=== PATIENT | female | born 1980 | race Caucasian/White ===

== ENCOUNTER → 2016-11-29 | Outpatient (CLI) | payer BC ==
[~2016-11-29] MED LIST: FLNCV PO; LEVO75TA5 PO
[2016-11-29 12:23] LABS: THYROID STIMULATING HORMONE 0.469 uIu/ml (0.300-4.500)
== END | disposition home or self-care (01) ==
LOC: C.LAB 10:49
PROVIDERS: ATTEND Internal Medicine Pulmonary Disease
DX: E03.9 Hypothyroidism, unspecified (principal)

== ENCOUNTER 2017-11-29 19:29 | Emergency (ER) | payer BC ==
[~2017-11-29] VITALS: Ht 152.4 cm; Wt 71.9 kg
[2017-11-29 19:31] VITALS: TEMP 36.8; Ht 152.4 cm; Wt 71.9 kg
[2017-11-29] MEDS ORDERED: SEPTRA DS HOME PACK 1 EA VIAL PO ONE (20:15)
[2017-11-29] MEDS ORDERED: CEPHALEXIN 500MG HOME PACK 1 EA BTL PO ONE (20:15)
[2017-11-29] MEDS ORDERED: SULFAMETHOXAZOLE/TRIMETHOPRIM DS 800/160MG TAB PO ONE (20:15)
[2017-11-29] MEDS ORDERED: CEPHALEXIN MONOHYDRATE 250 MG CAP PO ONE (20:15)
[2017-11-29] MEDS ORDERED: SULF800T23 PO (20:17)
[2017-11-29] MEDS ORDERED: CEPH500C PO (20:17)
--- NOTE | 2017-11-29 20:18 | EMERGENCY ROOM VISIT NOTE ---
History Report prepared by Keely: Cheryl Kumar Under the Supervision of: Dr. Pineda Kerr D.O. First contact with patient: 19:42 Chief Complaint: WOUND INFECTION Stated Complaint: CYST ON BACK, MAY BE INFECTED History of Present Illness The patient is a 37 year old female who presents to the Emergency Room with complaints of a worsening cyst on the right side of her back that started 4 days ago. The patient states that the cyst seems to have gotten bigger over the past few days and her family member notes that the cyst has expanded more toward the patient's left side. The patient notes that pus consistently comes back after she drains the cyst, and she complains of soreness in the cyst area. The patient reports that a nurse from her insurance company instructed the patient to come to the ED. She currently rates her pain a 4/10. The patient also reports a history of cysts and she notes that she had another cyst removed in the past. Source of History: patient Onset: 4 days ago Position: back (right) Symptom Intensity: 4/10 Quality: other (cyst) Timing: worsening Associated Symptoms: No fevers Review of Systems See HPI for pertinent positives & negatives. A total of 10 systems reviewed and were otherwise negative. Social History Smoking Status: Never Smoker Alcohol Use: none Marital Status: Occupation Status: employed Current/Historical Medications Scheduled Levothyroxine Sodium (Levothyroxine Sodium), 75 MCG PO DAILY Multivitamins (Flintstones Chewable *), 1 TAB PO QAM Allergies Uncoded Allergies: CAT SCAN DYE (Allergy, Severe, SOB/FACE & THROAT SWELLED, 04/16/14) Physical Exam Vital Signs Date Time Temp Pulse Resp B/P (MAP) Pulse Ox O2 Delivery O2 Flow Rate FiO2 18 19:31 36.8 84 18 146/90 98 Room Air Physical Exam CONSTITUTIONAL/VITAL SIGNS: Reviewed / noted above. GENERAL: Non-toxic in appearance. INTEGUMENTARY: Warm, dry, and Wilder. HEAD: Normocephalic. EYES: without scleral icterus or trauma. ENT/OROPHARYNX: clear and moist. LYMPHADENOPATHY/NECK: Is supple without lymphadenopathy or meningismus. RESPIRATORY: Lungs clear and equal. CARDIOVASCULAR: Regular rate and rhythm. GI/ABDOMEN: Soft and nontender. No organomegaly or pulsatile mass. No rebound or guarding. Normal bowel sounds. EXTREMITIES: Warm and well perfused. BACK: No CVA tenderness. Erythema in right scapula region with induration and no fluctuance. No discharge. NEUROLOGICAL: Intact without focal deficits. PSYCHIATRIC: normal affect. MUSCULOSKELETAL: Normally developed with good muscle tone. Medical Decision & Procedures Medical Decision Etiologies such as cellulitis, abscess, MRSA infection, DVT, necrotizing fasciitis, dermatitis, drug eruption, as well as others were entertained. This is a 37-year-old female who presents to the ED with a chief complaint of redness and discharge from the right back scapular area. The patient states that she has noticed it for about a week. She states that it was a reddened area and progressively increased in size over the past week. The mother states that she was able to express some pus out of the wound earlier today. There is currently no expressible pus. The patient has not had any fevers or systemic symptoms. The exam as noted above. There is some induration and some erythema. No abnormal discharge. Discharge. The patient was started on Keflex and Bactrim. She was given home pack for both. She was given prescriptions. She is felt to be stable for discharge. She will return for fevers or significant worsening. Medication Reconcilliation Current Medication List: was personally reviewed by me Blood Pressure Screening Patient's blood pressure: Normal blood pressure Impression Primary Impression: Cellulitis Scribe Attestation The scribe's documentation has been prepared under my direction and personally reviewed by me in its entirety. I confirm that the note above accurately reflects all work, treatment, procedures, and medical decision making performed by me. Departure Information Dispostion Home / Self-Care Prescriptions Sulfa/Trimethoprim (Bactrim Ds 800MG/160MG) Tab 1 TAB PO BID, #20 TAB Prov: Pineda Kerr D.OVolodymyr 11/29/17 Cephalexin Monohydrate (Keflex) 500 Mg Cap 500 MG PO QID, #40 CAP Prov: Pineda Kerr D.O. 11/29/17 Referrals No Doctor, Assigned (PCP) Patient Instructions Cellulitis Darian, My [facility] Additional Instructions Keflex and Bactrim as prescribed. Follow-up with your doctor for recheck next week if symptoms persist. Follow-up with dermatology and/or plastic surgery if necessary. Return for fevers, vomiting, significant increase in redness or pain or other concerns.
[2017-11-29 20:30] VITALS: BP 156/103; PULSE 89; O2SAT 99
[2017-11-29] MEDS ORDERED: PIPERACILLIN/TAZOBACTAM 4.5 GM/100ML D5W IV STA (20:34)
== END 2017-11-29 20:30 | disposition home or self-care (01) ==
LOC: C.EDB 19:30 → C.EDC 20:30
DX: L03.312 Cellulitis of back [any part except buttock and flank] (principal)